=== PATIENT | male | born 1985 | race Caucasian/White ===

== ENCOUNTER 2017-06-28 15:02 | Emergency (ER) | payer BC, OTHER ==
[2017-06-28] MEDS ORDERED: Cyclobenzaprine 10 MG TAB ONE (15:43)
== END 2017-06-28 16:02 | disposition home or self-care (01) ==
LOC: NAV ERS 15:02
DX: M54.6 Pain in thoracic spine (principal); E10.9 Type 1 diabetes mellitus without complications
CPT/HCPCS: 99001; 99283